=== PATIENT | male | born 1950 | race African-American/Black ===

== ENCOUNTER 2019-11-17 09:06 | Inpatient (IN) | payer OTHER ==
--- NOTE | 2019-11-17 11:20 | BHS.RME ---
Substance Use & Tx History - Substance Use History Alcohol Substance amount: 1 pint Vodka Frequency of use: More than 3 times per week Substance route: Oral Date of Last Use: 11/16/19 (First use age 14 y. Seizure 30 years ago. Blackout in 1961. No eyeopener) Heroin Substance amount: one bundle Frequency of use: Daily Substance route: Inhalation (ex: sniffing or snorting), Injection (ex: intravenous or skin popping) Date of Last Use: 11/16/19 (First use age 17 y. OD age 21 y. Has Narcan at home) Klonopin Substance amount: 3 x 2 mg Frequency of use: Daily Substance route: Oral Date of Last Use: 11/16/19 (Began use age 62 y) Cocaine- Powder Substance amount: 2 bags Frequency of use: Once a month Substance route: Inhalation (ex: sniffing or snorting), Injection (ex: intravenous or skin popping) Date of Last Use: 08/19/19 (First use age 17 y) Nicotine Substance amount: 3 cigs Frequency of use: Daily Substance route: Smoking Date of Last Use: 11/17/19 (began at age 11 y) - Last Treatment Date of last treatment: [facility] 30 y ago? Physical/Psych/Mental Status - Behavior General Behavior: Decreased activity Eye Contact: Normal - Cooperativeness Cooperativeness: Cooperative - Thinking Thought Processes: Tight Thought content: Future oriented - Physical Health Problems Is patient presently having any pain?: Yes (chronic joint pain: shoulders) Does patient presently have any injuries (include location): No Does patient currently have a fever: No COWS - Scale Resting Pulse: 0= MD 80 or Below Sweatin= No chills or Flushing Restless Observation: 0= Sits Still Pupil Size: 0= Normal to Room Light Bone or Joint Aches: 1= Mild Discomfort Runny Nose/ Eye Tearin= Runny Nose/Eyes GI Upset > 30mins: 2= Nausea/Diarrhea Tremor Observation: 1= Tremor [place], Not Seen Yawning Observation: 0= None Anxiety or Irritability: 1=Feels Anxious/Irritable Goose Flesh Skin: 0=Smooth Skin COWS Score: 7 CIWA Nausea/Vomitin Muscle Tremors: 1-None Visible, but [place] Anxiety: 3 Agitation: 0-Normal Activity Paroxysmal Sweats: No Perspiration Orientation: 0-Oriented Tacttile Disturbances: 0-None Auditory Disturbances: 2-Mild Harshness/Frighten Visual Disturbances: 2-Mild Sensitivity Headache: 3-Moderate CIWA-Ar Total Score: 14
--- NOTE | 2019-11-17 12:00 | HP ---
COWS - Scale Resting Pulse: 0= [place] 80 or Below Sweatin= No chills or Flushing Restless Observation: 0= Sits Still Pupil Size: 0= Normal to Room Light Bone or Joint Aches: 1= Mild Discomfort Runny Nose/ Eye Tearin= Runny Nose/Eyes GI Upset > 30mins: 2= Nausea/Diarrhea Tremor Observation: 1= Tremor [place], Not Seen Yawning Observation: 0= None Anxiety or Irritability: 1=Feels Anxious/Irritable Goose Flesh Skin: 0=Smooth Skin COWS Score: 7 CIWA Score Nausea/Vomitin Muscle Tremors: 1-None Visible, but [place] Anxiety: 3 Agitation: 0-Normal Activity Paroxysmal Sweats: No Perspiration Orientation: 0-Oriented Tacttile Disturbances: 0-None Auditory Disturbances: 2-Mild Harshness/Frighten Visual Disturbances: 2-Mild Sensitivity Headache: 3-Moderate CIWA-Ar Total Score: 14 - Admission Criteria OASAS Guidelines: Admission for Medically Managed Detox: Requires at least one of the followin. CIWA greater than 12 2. Seizures within the past 24 hours 3. Delirium tremens within the past 24 hours 4. Hallucinations within the past 24 hours 5. Acute intervention needed for co occurring medical disorder 6. Acute intervention needed for co occurring psychiatric disorder 7. Severe withdrawal that cannot be handled at a lower level of care (continued vomiting, continued diarrhea, abnormal vital signs) requiring intravenous medication and/or fluids 8. Admitting History and Physical - Admission Chief Complaint: Mr. Robins is a 69 yo man who presents to [facility] stating he is "trying to detox from Klonopin, Heroin and methadone". History of Present Illness: Mr. Robins is a 69 yo man who presents to [facility] stating he is "trying to detox from Klonopin, Heroin and methadone". He thinks he was here 30 years ago for detox. He states he was in a [facility]: [place] and was getting Suboxon e. He has a band on from [place] with Dr. Park name on it, that is the provider who last wrote rx for buprenorphine. He states that since he left [place] he has been buying heroin, buprenorphine and methadone on the street. PMH: COVID positive in July 2019, Asthma, arthritis PSH: left thumb trigger finger, bones removed from pinky toe bilaterally PSYCH: anxiety SoC: anxiety SOC: homeless on the streets - Substance Use History Alcohol Substance amount: 1 pint Vodka Frequency of use: More than 3 times per week Substance route: Oral Date of Last Use: 11/16/19 (First use age 14 y. Seizure 30 years ago. Blackout in 1960. No eyeopener) Heroin Substance amount: one bundle Frequency of use: Daily Substance route: Inhalation (ex: sniffing or snorting), Injection (ex: intrav enous or skin popping) Date of Last Use: 11/16/19 (First use age 17 y. OD age 21 y. Has Narcan at home) Klonopin Substance amount: 3 x 2 mg Frequency of use: Daily Substance route: Oral Date of Last Use: 11/16/19 (Began use age 62 y) Cocaine- Powder Substance amount: 2 bags Frequency of use: Once a month Substance route: Inhalation (ex: sniffing or snorting), Injection (ex: intraveno us or skin popping) Date of Last Use: 08/19/19 (First use age 17 y) Nicotine Substance amount: 3 cigs Frequency of use: Daily Substance route: Smoking Date of Last Use: 11/17/19 (began at age 11 y) - Last Treatment Date of last treatment: [facility] 30 y ago? Patient Name: Rocky Robins Date: 1950 Address: [address] [place] [address] Sex: Male Rx Written Rx Dispensed Drug Quantity Days Supply Prescriber Name 10/06/2019 10/25/2019 buprenorphine-naloxone 8-2 mg sl film 30 15 Tj Porras MD 10/06/2019 10/25/2019 clonazepam 1 mg tablet 30 10 Tj Porras MD 10/06/2019 10/18/2019 clonazepam 1 mg tablet 30 10 Tj Porras MD 10/06/2019 10/06/2019 buprenorphine-naloxone 8-2 mg sl film 30 15 Tj Porras MD 10/06/2019 10/06/2019 clonazepam 1 mg tablet 30 10 Tj Porras MD 09/10/2019 09/28/2019 clonazepam 1 mg tablet 30 10 Tj Porras MD 09/28/2019 09/28/2019 clonazepam 1 mg tablet 30 30 Tj Porras MD 09/10/2019 09/23/2019 buprenorphine-naloxone 8-2 mg sl film 30 15 Tj Porras MD 09/10/2019 09/19/2019 clonazepam 1 mg tablet 30 10 Tj Porras MD 09/10/2019 09/10/2019 buprenorphine-naloxone 8-2 mg sl film 30 15 Tj Porras MD 09/10/2019 09/10/2019 clonazepam 1 mg tablet 30 10 Tj Porras MD 08/23/2019 08/26/2019 clonazepam 1 mg tablet 30 15 Tj Porras MD 08/23/2019 08/26/2019 buprenorphine-naloxone 8-2 mg sl film 30 15 Tj Porras MD History Source: Patient Limitations to Obtaining History: No Limitations Admission [facility] Allergies/Adverse Reactions: Allergies Allergy/AdvReac Type Severity Reaction Status Date / Time No Known Drug Allergies Allergy Verified 11/17/19 12:08 Pork/Porcine Containing Allergy Verified 11/17/19 12:07 Products Exam Limitations: No Limitations - Ebola screening Have you traveled outside of the country in the last 21 days: No Have you been sick,other than usual withdrawal symptoms: No Do you have a fever: No - Review of Systems Constitutional: Weight Stable EENT: denies: Blurred Vision Respiratory: denies: Cough, Shortness of Breath Cardiac: denies: Chest Pain GI: reports: Nausea : reports: No Symptoms Reported Musculoskeletal: reports: Back Pain Integumentary: reports: No Symptoms Reported Neuro: reports: Headache Hematology: reports: No Symptoms Reported Psychiatric: reports: Anxious Patient History - Smoking Cessation Smoking history: Current every day smoker Have you smoked in the past 12 months: Yes Hx Chewing Tobacco Use: No Initiated information on smoking cessation: Yes 'Breaking Loose' booklet given: 11/17/19 - Substances abused Alcohol Substance route: Oral Frequency: 3-6 times per week Amount used: 1 PINT VODKA Age of first use: 14 Date of last use: 11/15/19 Heroin Substance route: Injection Frequency: Daily Amount used: 1 BUNDLE Age of first use: 17 Date of last use: 11/16/19 Cocaine Substance route: Inhalation Frequency: 1-3 times last 30 days Amount used: 2 BAGS Age of first use: 17 Date of last use: 08/19/19 Admission Physical Exam [facility] - Physical General Appearance: Yes: No Apparent Distress, Nourished, Thin, Irritable, Anxious HEENTM: Yes: EOMI, Hearing grossly Normal, Normocephalic, Normal Voice Respiratory: Yes: Lungs Clear, Normal Breath Sounds, No Respiratory Distress, No Accessory Muscle Use Neck: Yes: Within Normal Limits, Supple Breast: Yes: Breast Exam Deferred Cardiology: Yes: Regular Rhythm, S1, S2, Bradycardia (chronic per pt) Abdominal: Yes: Normal Bowel Sounds, Non Tender, Flat, Soft Genitourinary: Yes: Other (deferred) Back: Yes: Normal Inspection Musculoskeletal: Yes: Gait Steady Extremities: Yes: Normal Inspection, Non-Tender Neurological: Yes: Alert, Other (slow to respond to questions) Integumentary: Yes: Normal Color, Dry, Warm - Diagnostic (1) Alcohol dependence with withdrawal, uncomplicated Current Visit: Yes Status: Acute (2) Opioid withdrawal Current Visit: Yes Status: Acute (3) Nicotine dependence Current Visit: Yes Status: Acute Qualifiers: Nicotine product type: cigarettes Substance use status: uncomplicated Qualified Code(s): F17.210 - Nicotine dependence, cigarettes, uncomplicated (4) Benzodiazepine dependence Current Visit: Yes Status: Acute (5) HTN (hypertension) Current Visit: Yes Status: Chronic Qualifiers: Hypertension type: essential hypertension Qualified Code(s): I10 - Essential (primary) hypertension (6) Asthma Current Visit: Yes Status: Chronic (7) Arthritis Current Visit: Yes Status: Acute Cleared for Admission [facility] - Detox or Rehab [facility] Level of Care: Medically Managed Detox Regimen/Protocol: Methadone/Librium Breathalyzer - Breathalyzer Breathalyzer: 0 Urine Drug Screen - Test Device Lot number: [id number] Expiration date: 11/15/21 - Control Is test valid?: Yes - Results Drug screen NEGATIVE: No Urine drug screen results: FEN-Fentanyl, MOP-Opiates, MTD-Methadone, BUP- Suboxone Inpatient Rehab Admission - Rehab Decision to Admit Inpatient rehab admission?: No
[2019-11-17] MEDS ORDERED: cloNIDine HCL 0.1 MG TABLET PO PRN (12:11)
[2019-11-17] MEDS ORDERED: MAGNESIUM CITRATE 300 ML BOTTLE PO PRN (12:11)
[2019-11-17] MEDS ORDERED: BISMUTH SUBSALICYLATE 524 MG/30 ML UD PO PRN (12:11)
[2019-11-17] MEDS ORDERED: ACETAMINOPHEN 325 MG TABLET (FP) PO PRN (12:11)
[2019-11-17] MEDS ORDERED: MAG HYDROX/AL HYDROX/SIMETH 30 ML UNIT-DOSE CUP PO PRN (12:11)
[2019-11-17] MEDS ORDERED: MAGNESIUM HYDROX 2400MG/30ML ORAL SUSPENSION 30 ML CUP PO PRN (12:11)
[2019-11-17] MEDS ORDERED: IBUPROFEN 400 MG TABLET (FP) PO PRN (12:11)
[2019-11-17] MEDS ORDERED: chlordiazePOXIDE HCL 25 MG CAPSULE PO PRN (12:11)
[2019-11-17] MEDS ORDERED: NICOTINE POLACRILEX 2 MG GUM BUC PRN (12:11)
[2019-11-17] MEDS ORDERED: MENTHOL/PHENOL 1 EACH UD MM PRN (12:11)
[2019-11-17] MEDS ORDERED: ALBUTEROL SO4 HFA INHALER IH PRN (12:14)
[2019-11-17 12:36] VITALS: BMI 20.2
[2019-11-17] MEDS ORDERED: METHADONE HCL 10 MG TABLET (FOR DETOX USE ONLY) PO ONE (13:30)
[2019-11-17] MEDS: ONDANSETRON *ODT* 4 MG TABLET SL PRN (13:30)
[2019-11-17] MEDS ORDERED: ONDANSETRON *ODT* 4 MG TABLET ONE (13:34)
[2019-11-17] MEDS: LISINOPRIL 10 MG TABLET (FP) PO SCH (14:15)
[2019-11-17] MEDS: hydrOXYzine PAMOATE 25 MG CAPSULE (FP) PO SCH ×3 (14:17→22:54)
[2019-11-17] MEDS: NICOTINE 14 MG/24 HOURS TOPICAL PATCH TD SCH (14:20)
[2019-11-17] MEDS ORDERED: TUBERCULIN PPD 5 TU/0.1ML VIAL ID ONE (14:23)
--- NOTE | 2019-11-17 14:24 | PN ---
S Progress Note Note: Pt is a 69 y/o male admitted to unit this afternoon. Called by nurse Tea Mathur re:blood pressure/pulse. This investment underwriter called admitting doctor, Dr. Ashford who examined the patient and pt stated to her he has a hx of Chronic Bradycardia. Denied Chest pain and EKG done on admission unremarkable. Pt's Heroin use reviewed with Dr. Ashford as one bundle/day. Dr. Ashford gave an ok to medicate with methadone 30 mg as directed in the protocol. Hold Lisinopril today. Vital Signs - 24 hr 11/17/19 11/17/19 12:31 14:08 Temperature 97.4 F L 97.7 F Pulse Rate 52 L 44 L Respiratory 16 16 Rate Blood Pressure 106/66 103/53 L O2 Sat by Pulse 95 Oximetry (%) Increase po fluids monitor pt maintain safety
--- NOTE | 2019-11-17 14:40 | EKG ---
Test Reason : Blood Pressure : / mmHG Vent. Rate : 044 BPM Atrial Rate : 044 BPM P-R Int : 190 ms QRS Dur : 100 ms QT Int : 452 ms P-R-T Axes : 044 -61 011 degrees QTc Int : 386 ms MARKED SINUS BRADYCARDIA LEFT AXIS DEVIATION LOW VOLTAGE QRS ABNORMAL ECG WHEN COMPARED WITH ECG OF 26-FEB-2008 12:02, [place] INTERVAL HAS DECREASED Confirmed by MD Rupesh, Kemal ([id number]) on 11/17/2019 2:39:52 PM Referred By: Confirmed By:Kemal Goddard MD
[2019-11-17] MEDS: predniSONE 20 MG TABLET (UD) PO SCH (14:45)
[2019-11-17] MEDS: chlordiazePOXIDE HCL 25 MG CAPSULE PO SCH ×2 (17:34→22:54)
[2019-11-17] MEDS: ACETAMINOPHEN 325 MG TABLET (FP) PO PRN (17:40)
[2019-11-17 17:51] LABS: HEMATOCRIT 35.5 % (35.4-49); HEMOGLOBIN 11.7 GM/dL (11.7-16.9); MCH 29.8 pg (25.7-33.7); MEAN PLT VOLUME 9.6 fl (7.5-11.1); PLATELET COUNT 204 K/MM3 (134-434); RBC 3.94 M/mm3 (4.00-5.60); RDW 14.9 % (11.9-15.9); WHITE BLOOD COUNT 7.5 K/mm3 (4.0-10.0)
[2019-11-17 17:59] LABS: ALBUMIN 3.4 g/dl (3.4-5.0); BILIRUBIN,TOTAL 0.2 mg/dL (0.2-1); BLOOD UREA NITROGEN 26.6 mg/dL (7-18); CALCIUM 9.1 mg/dL (8.5-10.1); CREATININE 1.3 mg/dL (0.55-1.3); POTASSIUM 4.7 mmol/L (3.5-5.1); TOT PROT 8.3 g/dl (6.4-8.2)
[2019-11-17] MEDS ORDERED: traZODone HCL 100 MG TABLET (FP) PO ONE (21:08)
[2019-11-17] MEDS: TRIMETHOBENZAMIDE HCL 200MG/2ML INJ IM PRN (21:28)
[2019-11-17] MEDS: MELATONIN 5 MG TABLETS PO SCH (22:54)
[2019-11-17] MEDS: METHOCARBAMOL 500 MG TABLET PO PRN (22:54)
[2019-11-17] MEDS: THIAMINE HCL 100 MG TABLET (FP) PO SCH (22:54)
[2019-11-18] MEDS: TRIMETHOBENZAMIDE HCL 200MG/2ML INJ IM PRN (07:46)
[2019-11-18] MEDS: chlordiazePOXIDE HCL 25 MG CAPSULE PO SCH ×4 (07:58→22:39)
[2019-11-18] MEDS: hydrOXYzine PAMOATE 25 MG CAPSULE (FP) PO SCH (08:33)
[2019-11-18] MEDS ORDERED: METHADONE HCL 10 MG TABLET (FOR DETOX USE ONLY) ONE (09:28)
[2019-11-18] MEDS: NICOTINE 14 MG/24 HOURS TOPICAL PATCH TD SCH (09:33)
[2019-11-18] MEDS: predniSONE 20 MG TABLET (UD) PO SCH (09:33)
[2019-11-18] MEDS: PRENATAL VITAMINS W/ FOLIC ACID TABLET (FP) PO SCH (09:34)
[2019-11-18] MEDS: LISINOPRIL 10 MG TABLET (FP) PO SCH (09:43)
[2019-11-18] MEDS ORDERED: METHADONE (DETOX) 20 MG, METHADONE (DETOX) 5 MG PO ONE (10:00)
--- NOTE | 2019-11-18 14:19 | PN ---
BHS Progress Note Note: Pt arrived on the unit about lunch time and saw pt eating lunch in room.
--- NOTE | 2019-11-18 14:20 | PN ---
[facility] CIWA - CIWA Score Nausea/Vomitin Muscle Tremors: 3 Anxiety: 4-Mod. Anxious/Guarded Agitation: 3 Paroxysmal Sweats: 1-Minimal Palms Moist Orientation: 0-Oriented Tacttile Disturbances: 0-None Auditory Disturbances: 0-None Visual Disturbances: 0-None Headache: 0-None Present CIWA-Ar Total Score: 16 BHS COWS - Scale Resting Pulse: 0= [place] 80 or Below Sweatin= Chills/Flushing Restless Observation: 3= Extraneous Movement Pupil Size: 0= Normal to Room Light Bone or Joint Aches: 4=Acute Joint/Muscle Pain Runny Nose/ Eye Tearin= None GI Upset > 30mins: 3= Vomiting/Diarrhea Tremor Observation of Outstretched Hands: 1= Tremor [place], Not Seen Yawning Observation: 0= None Anxiety or Irritability: 2=Irritable/Anxious Goose Flesh Skin: 0=Smooth Skin COWS Score: 14 S Progress Note (SOAP) Subjective: Pt c/o severe withdrawal sx-"i can't talk right now". "i'm withdrawing". "my whole body is messed up". Saw pt in bed and appears to be uncomfortable. c/o body pain anxiety chills nausea/vomiting Objective: 11/18/19 16:42 Vital Signs - 24 hr 11/17/19 11/17/19 11/18/19 16:48 20:19 05:34 Temperature 97.5 F L 98.4 F 98.0 F Pulse Rate 55 L 53 L 51 L Respiratory 16 16 16 Rate Blood Pressure 102/61 109/65 110/68 O2 Sat by Pulse 95 90 L Oximetry (%) Laboratory Tests 11/17/19 11/17/19 11/17/19 12:10 12:10 12:10 WBC 7.5 RBC 3.94 L Hgb 11.7 Hct 35.5 MCV 90.0 MCH 29.8 MCHC 33.0 RDW 14.9 Plt Count 204 MPV 9.6 Sodium 138 Potassium 4.7 Chloride 105 Carbon Dioxide 24 Anion Gap 9 BUN 26.6 H Creatinine 1.3 Est GFR (CKD-EPI)AfAm 64.52 Est GFR (CKD-EPI)NonAf 55.67 Random Glucose 96 Calcium 9.1 Total Bilirubin 0.2 AST 18 ALT 15 Alkaline Phosphatase 55 Total Protein 8.3 H Albumin 3.4 Syphilis Serology Non-reactive COVID-19 (GIORGIO) 11/17/19 14:10 WBC RBC Hgb Hct MCV MCH MCHC RDW Plt Count MPV Sodium Potassium Chloride Carbon Dioxide Anion Gap BUN Creatinine Est GFR (CKD-EPI)AfAm Est GFR (CKD-EPI)NonAf Random Glucose Calcium Total Bilirubin AST ALT Alkaline Phosphatase Total Protein Albumin Syphilis Serology COVID-19 (GIORGIO) Not detected covid-19 not detected alert o x 3 uncomfortable in bed but communicating needs coherently. Assessment: 11/18/19 16:43 moderated to severe withdrawal sx Plan: cont detox increase po fluids maintain safety Tigan was given as directed with positive response.
[2019-11-18] MEDS: THIAMINE HCL 100 MG TABLET (FP) PO SCH (22:39)
[2019-11-18] MEDS: MELATONIN 5 MG TABLETS PO SCH (22:39)
[2019-11-19] MEDS: chlordiazePOXIDE HCL 25 MG CAPSULE PO SCH ×4 (07:23→22:51)
[2019-11-19] MEDS ORDERED: METHADONE HCL 10 MG TABLET (FOR DETOX USE ONLY) PO ONE (10:00)
[2019-11-19] MEDS: NICOTINE 14 MG/24 HOURS TOPICAL PATCH TD SCH (10:06)
[2019-11-19] MEDS: PRENATAL VITAMINS W/ FOLIC ACID TABLET (FP) PO SCH (10:07)
[2019-11-19] MEDS: LISINOPRIL 10 MG TABLET (FP) PO SCH (10:08)
[2019-11-19] MEDS: predniSONE 20 MG TABLET (UD) PO SCH (10:15)
--- NOTE | 2019-11-19 11:23 | PN ---
[facility] CIWA - CIWA Score Nausea/Vomitin-No Nausea/No Vomiting Muscle Tremors: None Anxiety: 2 Agitation: 2 Paroxysmal Sweats: No Perspiration Orientation: 1-Uncertain about Date Tacttile Disturbances: 0-None Auditory Disturbances: 0-None Visual Disturbances: 0-None Headache: 0-None Present CIWA-Ar Total Score: 5 S COWS - Scale Resting Pulse: 0= [place] 80 or Below Sweatin= No chills or Flushing Restless Observation: 1= Difficult to Sit Still Pupil Size: 0= Normal to Room Light Bone or Joint Aches: 1= Mild Discomfort Runny Nose/ Eye Tearin= None GI Upset > 30mins: 0= None Tremor Observation of Outstretched Hands: 0= None Yawning Observation: 0= None Anxiety or Irritability: 2=Irritable/Anxious Goose Flesh Skin: 0=Smooth Skin COWS Score: 4 S Progress Note (SOAP) Subjective: Pt insists on getting lisinopril, states he always has low BP and has been told to continue Objective: 11/19/19 11:26 PE Gnl: WDWN, in bed, in no distress MS: agitated, irritable: demanding he get lisinopril Motor: moves limbs well Gait: deferred Laboratory Tests 11/17/19 11/17/19 11/17/19 12:10 12:10 12:10 WBC 7.5 RBC 3.94 L Hgb 11.7 Hct 35.5 MCV 90.0 MCH 29.8 MCHC 33.0 RDW 14.9 Plt Count 204 MPV 9.6 Sodium 138 Potassium 4.7 Chloride 105 Carbon Dioxide 24 Anion Gap 9 BUN 26.6 H Creatinine 1.3 Est GFR (CKD-EPI)AfAm 64.52 Est GFR (CKD-EPI)NonAf 55.67 Random Glucose 96 Calcium 9.1 Total Bilirubin 0.2 AST 18 ALT 15 Alkaline Phosphatase 55 Total Protein 8.3 H Albumin 3.4 Syphilis Serology Non-reactive COVID-19 (GIORGIO) 11/17/19 14:10 WBC RBC Hgb Hct MCV MCH MCHC RDW Plt Count MPV Sodium Potassium Chloride Carbon Dioxide Anion Gap BUN Creatinine Est GFR (CKD-EPI)AfAm Est GFR (CKD-EPI)NonAf Random Glucose Calcium Total Bilirubin AST ALT Alkaline Phosphatase Total Protein Albumin Syphilis Serology COVID-19 (GIORGIO) Not detected Home Medication List Medication Instructions Recorded Confirmed Type Albuterol Sulfate Inhaler - 1 - 2 inh PO Q4H PRN 11/17/19 11/17/19 History [Ventolin Hfa Inhaler -] Clonazepam [Klonopin] 1 mg PO TID 11/17/19 11/17/19 History Lisinopril 10 mg PO DAILY 11/17/19 11/17/19 History predniSONE [Deltasone -] 60 mg PO DAILY 11/17/19 11/17/19 History Active Medications Generic Name Dose Route Start Last Admin Trade Name Freq PRN Reason Stop Dose Admin Acetaminophen 650 mg 11/17/19 12:11 11/17/19 17:40 Tylenol - PO 650 mg Q6H PRN Administration PAIN LEVEL 4 - 6 Acetaminophen 650 mg 11/17/19 12:11 11/18/19 17:54 Tylenol - PO 650 mg Q6H PRN Administration FEVER Al Hydroxide/Mg Hydroxide 30 ml 11/17/19 12:11 Mylanta Oral Suspension - PO Q6H PRN DYSPEPSIA Albuterol Sulfate 1 puff 11/17/19 12:14 Ventolin Hfa Inhaler - IH Q4H PRN ASTHMA Bismuth Subsalicylate 524 mg 11/17/19 12:11 Pepto-Bismol - PO Q1H PRN DIARRHEA Chlordiazepoxide HCl 25 mg 11/19/19 05:00 11/19/19 10:06 Librium - PO 11/19/19 23:01 25 mg [id number] ISADORA Administration Chlordiazepoxide HCl 25 mg 11/17/19 12:11 11/18/19 18:37 Librium - PO 11/19/19 23:59 25 mg Q4H PRN Administration WITHDRAWAL(CONT SUBST) Chlordiazepoxide HCl 10 mg 11/20/19 05:00 Librium - PO 11/20/19 23:01 [id number] ISADORA Chlordiazepoxide HCl 10 mg 11/21/19 05:00 Librium - PO 11/21/19 17:01 Q12H ISADORA Chlordiazepoxide HCl 10 mg 11/20/19 00:00 Librium - PO 11/21/19 00:00 Q4H PRN WITHDRAWAL(CONT SUBST) Chlordiazepoxide HCl 10 mg 11/22/19 05:00 Librium - PO 11/22/19 05:01 ONCE@0500 ONE Clonidine 0.1 mg 11/17/19 12:11 Catapres - PO 11/19/19 23:59 Q4H PRN Withdrawal Symptoms Eucalyptus/Menthol/Phenol/Sorbitol 1 each 11/17/19 12:11 Cepastat Lozenge - MM 11/23/19 12:11 Q4H PRN SORE THROAT Ibuprofen 400 mg 11/17/19 12:11 Motrin - PO Q6H PRN PAIN LEVEL 1 - 3 Lisinopril 10 mg 11/17/19 13:30 11/19/19 10:08 Prinivil PO Not Given DAILY ISADORA Magnesium Citrate 300 ml 11/17/19 12:11 Citroma - PO Q48H PRN CONSTIPATION Magnesium Hydroxide 30 ml 11/17/19 12:11 Milk Of Magnesia - PO PRN PRN CONSTIPATION Melatonin 5 mg 11/17/19 22:00 11/18/19 22:39 Melatonin PO 5 mg HS ISADORA Administration Methadone HCl 5 mg 11/22/19 06:00 Dolophine - PO 11/22/19 06:01 ONCE@0600 ONE Methadone HCl 10 mg 11/21/19 10:00 Dolophine - PO 11/21/19 10:01 ONCE ONE Methadone HCl 10 mg/ Methadone 15 mg 11/20/19 10:00 HCl 5 mg PO 11/20/19 10:01 ONCE ONE Methocarbamol 500 mg 11/17/19 12:11 11/17/19 22:54 Robaxin - PO 11/23/19 12:11 500 mg Q6H PRN Administration MUSCLE SPASMS Nicotine 14 mg 11/17/19 13:30 11/19/19 10:06 Nicoderm Patch - TD 14 mg DAILY ISADORA Administration Nicotine Polacrilex 2 mg 11/17/19 12:11 Nicorette Gum - BUC Q2H PRN NICOTINE REPLACEMENT RX Ondansetron HCl 4 mg 11/17/19 12:11 11/17/19 13:30 Zofran Odt - SL 11/23/19 12:12 4 mg Q8H PRN Administration Nausea/Vomiting Prednisone 60 mg 11/17/19 13:30 11/19/19 10:15 Deltasone - PO Not Given DAILY ISADORA Multivit/Folic Acid/Iron 1 tab 11/18/19 10:00 11/19/19 10:07 Vitamins (Sjr) - PO 1 tab DAILY ISADORA Administration Thiamine HCl 100 mg 11/17/19 22:00 11/18/19 22:39 Vitamin B1 - PO 100 mg HS ISADORA Administration Trimethobenzamide HCl 200 mg 11/17/19 21:07 11/18/19 07:46 Tigan Injection - IM 11/19/19 21:06 200 mg Q8H PRN Administration NAUSEA Vital Signs Temperature 97.5 F L 11/19/19 08:45 Pulse Rate 63 11/19/19 08:45 Respiratory Rate 18 11/19/19 08:45 Blood Pressure 100/62 11/19/19 08:45 O2 Sat by Pulse Oximetry (%) 95 11/19/19 08:45 Assessment: 11/19/19 11:22 1. Opiate use disorder 2. Benzodiazpine use, rx from 3. Alcohol use disorder 4. Nicotine dependence 11/19/19 11:23 Mr. Robins is a 69 yo man who presents to [facility] stating he is "trying to detox from Klonopin, Heroin and methadone". He thinks he was here 30 years ago for detox. He states he was in a Care Home: [place] and was getting Suboxone. He has a band on from [place] with Dr. Park name on it, that is the provider who last wrote rx for buprenorphine. He states that since he left [place] he has been buying heroin, buprenorphine and methadone on the street. PMH: COVID positive in July 2019, Asthma, arthritis PSH: left thumb trigger finger, bones removed from pinky toe bilaterally PSYCH: anxiety SoC: anxiety SOC: homeless on the streets Plan: 1. Librium detox, projected completion on 11/21 2. Methadone detox, projected completion on 11/21 3. Psychiatry consult pending.
[2019-11-19] MEDS: METHOCARBAMOL 500 MG TABLET PO PRN (12:56)
[2019-11-19] MEDS: ONDANSETRON *ODT* 4 MG TABLET SL PRN (12:56)
[2019-11-19] MEDS: ACETAMINOPHEN 325 MG TABLET (FP) PO PRN (12:56)
[2019-11-19] MEDS ORDERED: SODIUM PHOSPHATE/NA BIPHOS 133 ML ENEMA PR ONE (20:25)
[2019-11-19] MEDS: THIAMINE HCL 100 MG TABLET (FP) PO SCH (22:52)
[2019-11-19] MEDS: MELATONIN 5 MG TABLETS PO SCH (22:52)
[2019-11-20] MEDS ORDERED: chlordiazePOXIDE HCL 10 MG CAPSULE PO PRN
[2019-11-20] MEDS: ONDANSETRON *ODT* 4 MG TABLET SL PRN (04:40)
[2019-11-20] MEDS: chlordiazePOXIDE HCL 10 MG CAPSULE PO SCH ×4 (06:30→22:53)
[2019-11-20] MEDS ORDERED: METHADONE HCL 10 MG TABLET (FOR DETOX USE ONLY) ONE (09:51)
[2019-11-20] MEDS ORDERED: METHADONE HCL 5 MG TABLET (FOR DETOX USE ONLY) ONE (09:52)
[2019-11-20] MEDS ORDERED: METHADONE (DETOX) 10 MG, METHADONE (DETOX) 5 MG PO ONE (10:00)
[2019-11-20] MEDS: PRENATAL VITAMINS W/ FOLIC ACID TABLET (FP) PO SCH (10:51)
[2019-11-20] MEDS: LISINOPRIL 10 MG TABLET (FP) PO SCH (10:51)
[2019-11-20] MEDS: predniSONE 20 MG TABLET (UD) PO SCH ×2 (10:51→10:52)
[2019-11-20] MEDS: NICOTINE 14 MG/24 HOURS TOPICAL PATCH TD SCH (10:55)
[2019-11-20] MEDS ORDERED: hydrOXYzine PAMOATE 25 MG CAPSULE (FP) PO ONE (14:00)
[2019-11-20] MEDS ORDERED: TRIMETHOBENZAMIDE HCL 200MG/2ML INJ IM ONE (14:01)
--- NOTE | 2019-11-20 14:08 | PN ---
S CIWA - CIWA Score Nausea/Vomitin Muscle Tremors: 2 Anxiety: 3 Agitation: 0-Normal Activity Paroxysmal Sweats: 3 Orientation: 0-Oriented Tacttile Disturbances: 0-None Auditory Disturbances: 0-None Visual Disturbances: 0-None Headache: 1-Very Mild CIWA-Ar Total Score: 11 BHS COWS - Scale Resting Pulse: 0= [place] 80 or Below Sweatin= Chills/Flushing Restless Observation: 1= Difficult to Sit Still Pupil Size: 0= Normal to Room Light Bone or Joint Aches: 2= Severe Diffuse Aches Runny Nose/ Eye Tearin= None GI Upset > 30mins: 1= Stomach Cramp Tremor Observation of Outstretched Hands: 2= Slight Tremor Visible Yawning Observation: 2= >3x During Session Anxiety or Irritability: 2=Irritable/Anxious Goose Flesh Skin: 0=Smooth Skin COWS Score: 11 S Progress Note (SOAP) Subjective: c/o sweats, anxiety, irritability, nausea/vomiting x2, headache, shakes, and muscle aches. Objective: 11/20/19 14:05 Vital Signs 11/20/19 11/20/19 06:50 08:43 Temperature 97.2 F L 96.1 F L Pulse Rate 84 60 Respiratory 18 18 Rate Blood Pressure 98/62 103/64 O2 Sat by Pulse 97 97 Oximetry (%) Laboratory Last Values WBC 7.5 K/mm3 (4.0-10.0) 11/17/19 12:10 RBC 3.94 M/mm3 (4.00-5.60) L 11/17/19 12:10 Hgb 11.7 GM/dL (11.7-16.9) 11/17/19 12:10 Hct 35.5 % (35.4-49) 11/17/19 12:10 MCV 90.0 fl (80-96) 11/17/19 12:10 MCH 29.8 pg (25.7-33.7) 11/17/19 12:10 MCHC 33.0 g/dl (32.0-35.9) 11/17/19 12:10 RDW 14.9 % (11.9-15.9) 11/17/19 12:10 Plt Count 204 K/MM3 (134-434) 11/17/19 12:10 MPV 9.6 fl (7.5-11.1) 11/17/19 12:10 Sodium 138 mmol/L (136-145) 11/17/19 12:10 Potassium 4.7 mmol/L (3.5-5.1) 11/17/19 12:10 Chloride 105 mmol/L (98-107) 11/17/19 12:10 Carbon Dioxide 24 mmol/L (21-32) 11/17/19 12:10 Anion Gap 9 MMOL/L (8-16) 11/17/19 12:10 BUN 26.6 mg/dL (7-18) H 11/17/19 12:10 Creatinine 1.3 mg/dL (0.55-1.3) 11/17/19 12:10 Est GFR (CKD-EPI)AfAm 64.52 11/17/19 12:10 Est GFR (CKD-EPI)NonAf 55.67 11/17/19 12:10 Random Glucose 96 mg/dL (74-106) 11/17/19 12:10 Calcium 9.1 mg/dL (8.5-10.1) 11/17/19 12:10 Total Bilirubin 0.2 mg/dL (0.2-1) 11/17/19 12:10 AST 18 U/L (15-37) 11/17/19 12:10 ALT 15 U/L (13-61) 11/17/19 12:10 Alkaline Phosphatase 55 U/L (45-117) 11/17/19 12:10 Total Protein 8.3 g/dl (6.4-8.2) H 11/17/19 12:10 Albumin 3.4 g/dl (3.4-5.0) 11/17/19 12:10 Syphilis Serology Non-reactive (NONREACTIVE) 11/17/19 12:10 COVID-19 (GIORGIO) Not detected (Not Detected) 11/17/19 14:10 Labs noted. Assessment: 11/20/19 14:06 AOX3 and in no acute respiratory distress. Full ROM, ambulating in the unit. Withdrawal symptoms. N/V Plan: continue detox. Vistaril 25mg po x1dose. Tigan 200mg IM x1dose. Continue to monitor for any changes.
[2019-11-20] MEDS: ACETAMINOPHEN 325 MG TABLET (FP) PO PRN (17:14)
[2019-11-20] MEDS: MELATONIN 5 MG TABLETS PO SCH (22:53)
[2019-11-20] MEDS: THIAMINE HCL 100 MG TABLET (FP) PO SCH (22:53)
[2019-11-21] MEDS ORDERED: chlordiazePOXIDE HCL 10 MG CAPSULE PO SCH (05:00)
[2019-11-21] MEDS: DOCUSATE SODIUM 100 MG CAPSULE (FP) PO SCH ×2 (07:15→07:52)
[2019-11-21] MEDS: chlordiazePOXIDE HCL 10 MG CAPSULE PO SCH (07:45)
[2019-11-21] MEDS: ACETAMINOPHEN 325 MG TABLET (FP) PO PRN (09:20)
[2019-11-21 09:26] VITALS: BP 100/62; PULSE 66; TEMP 97.3
[2019-11-21] MEDS ORDERED: METHADONE HCL 10 MG TABLET (FOR DETOX USE ONLY) PO ONE (10:00)
--- NOTE | 2019-11-21 11:09 | DS ---
[facility] Detox Discharge Summary Admission Date: 11/17/19 Discharge Date: 11/21/19 - History Present History: Alcohol Dependence, Opioid Dependence, Sedative Dependence Additional Comments: 69 years old male admitted on 11/17/19 for alcohol benzo opiate withdrawal sx management treated with librium and methadone detox regiment mr carroll insists to leave a day early to rehab as estimated day of 11/22/19 is alert oriented x 3 speech clearly coherently ambulating steady gaits General Appearance: Yes: No Apparent Distress, Nourished, Thin, Irritable, Anxious HEENTM: Yes: EOMI, Hearing grossly Normal, Normocephalic, Normal Voice Respiratory: Yes: Lungs Clear, Normal Breath Sounds, No Respiratory Distress, No Accessory Muscle Use Neck: Yes: Within Normal Limits, Supple Breast: Yes: Breast Exam Deferred Cardiology: Yes: Regular Rhythm, S1, S2, Bradycardia (chronic per pt) Abdominal: Yes: Normal Bowel Sounds, Non Tender, Flat, Soft Genitourinary: Yes: Other (deferred) Back: Yes: Normal Inspection Musculoskeletal: Yes: Gait Steady Extremities: Yes: Normal Inspection, Non-Tender Neurological: Yes: Alert, Other (slow to respond to questions) Integumentary: Yes: Normal Color, Dry, Warm Pertinent Past History: time for discharge 45 minutes treatment team met with mr carroll to discuss the benefits of librium and methadone regiments completion mr carroll prefers returning to suboxone program - Physical Exam Results Vital Signs: Vital Signs Temperature 97.3 F L 11/21/19 08:30 Pulse Rate 66 11/21/19 08:30 Respiratory Rate 18 11/21/19 08:30 Blood Pressure 100/62 11/21/19 08:30 O2 Sat by Pulse Oximetry (%) 97 11/21/19 08:30 Pertinent Admission Physical Exam Findings: alcohol benzo opiate withdrawal Laboratory Tests 11/17/19 11/17/19 11/17/19 12:10 12:10 12:10 WBC 7.5 RBC 3.94 L Hgb 11.7 Hct 35.5 MCV 90.0 MCH 29.8 MCHC 33.0 RDW 14.9 Plt Count 204 MPV 9.6 Sodium 138 Potassium 4.7 Chloride 105 Carbon Dioxide 24 Anion Gap 9 BUN 26.6 H Creatinine 1.3 Est GFR (CKD-EPI)AfAm 64.52 Est GFR (CKD-EPI)NonAf 55.67 Random Glucose 96 Calcium 9.1 Total Bilirubin 0.2 AST 18 ALT 15 Alkaline Phosphatase 55 Total Protein 8.3 H Albumin 3.4 Syphilis Serology Non-reactive COVID-19 (GIOR[place]IO) 11/17/19 14:10 WBC RBC Hgb Hct MCV MCH MCHC RDW Plt Count MPV Sodium Potassium Chloride Carbon Dioxide Anion Gap BUN Creatinine Est GFR (CKD-EPI)AfAm Est GFR (CKD-EPI)NonAf Random Glucose Calcium Total Bilirubin AST ALT Alkaline Phosphatase Total Protein Albumin Syphilis Serology COVID-19 (GIORGIO) Not detected lab noted - Treatment Hospital Course: Detox Protocol Followed, Detoxed Safely, Responded well, Discharged Condition Good, Rehab Referral Accepted Patient has Accepted a Rehab Referral to: [facility] - Medication Discharge Medications: Ambulatory Orders Albuterol Sulfate Inhaler - [Ventolin HFA Inhaler -] 1 - 2 inh PO Q4H PRN 11/17/19 Clonazepam [Klonopin] 1 mg PO TID 11/17/19 Lisinopril 10 mg PO DAILY 11/17/19 predniSONE [Deltasone -] 60 mg PO DAILY 11/17/19 - Diagnosis (1) Substance induced mood disorder Status: Suspected (2) Alcohol dependence with withdrawal, uncomplicated Status: Acute (3) Benzodiazepine dependence Status: Acute (4) Nicotine dependence Status: Acute Qualifiers: Nicotine product type: cigarettes Substance use status: in withdrawal Qualified Code(s): F17.213 - Nicotine dependence, cigarettes, with withdrawal (5) Opioid withdrawal Status: Acute (6) Asthma Status: Chronic Qualifiers: Asthma severity: mild Asthma persistence: intermittent Asthma complication type: with status asthmaticus Qualified Code(s): J45.22 - Mild intermittent asthma with status asthmaticus (7) HTN (hypertension) Status: Chronic Qualifiers: Hypertension type: essential hypertension Qualified Code(s): I10 - Essential (primary) hypertension - AMA Did Patient Leave Against Medical Advice: No CIWA Score - CIWA Score Nausea/Vomitin-Mild Nausea/No Vomiting Muscle Tremors: 1-None Visible, but [place] Anxiety: 2 Agitation: 0-Normal Activity Paroxysmal Sweats: 1-Minimal Palms Moist Orientation: 0-Oriented Tacttile Disturbances: 0-None Auditory Disturbances: 0-None Visual Disturbances: 1-Very Mild Sensitivity Headache: 0-None Present CIWA-Ar Total Score: 6 COWS (PN) - Opiate Withdrawal Resting Pulse: 1= MI 81-100 Sweatin= No chills or Flushing Restless Observation: 0= Sits Still Pupil Size: 0= Normal to Room Light Bone or Joint Aches: 1= Mild Discomfort Runny Nose/ Eye Tearin= Nasal Congestion GI Upset > 30mins: 1= Stomach Cramp Tremor Observation of Outstretched Hands: 1= Tremor [place], Not Seen Yawning Observation: 0= None Anxiety or Irritability: 1=Feels Anxious/Irritable Goose Flesh Skin: 0=Smooth Skin COWS Score: 6
[2019-11-22] MEDS ORDERED: chlordiazePOXIDE HCL 10 MG CAPSULE PO ONE (05:00)
[2019-11-22] MEDS ORDERED: METHADONE HCL 5 MG TABLET (FOR DETOX USE ONLY) PO ONE (06:00)
== END 2019-11-21 09:23 | disposition home or self-care (01) | DRG 897 ==
LOC: YASAS 09:06 → Y5N DETOX 12:39 → Y3N 11-18 18:17
PROVIDERS: ADMIT Allergy & Immunology; ATTEND Allergy & Immunology
PROC: HZ2ZZZZ Detoxification Services for Substance Abuse Treatment (ICD-10-PCS; principal; 2019-11-17)
DX: F11.23 Opioid dependence with withdrawal (principal); F10.230 Alcohol dependence with withdrawal, uncomplicated; F13.230 Sedative, hypnotic or anxiolytic dependence with withdrawal, uncomplicated; F17.213 Nicotine dependence, cigarettes, with withdrawal; F19.24 Other psychoactive substance dependence with psychoactive substance-induced mood disorder; I10 Essential (primary) hypertension; J45.20 Mild intermittent asthma, uncomplicated; R00.1 Bradycardia, unspecified; M19.90 Unspecified osteoarthritis, unspecified site; Z86.69 Personal history of other diseases of the nervous system and sense organs; Z86.19 Personal history of other infectious and parasitic diseases; Z59.0 Homelessness; Z91.018 Allergy to other foods
CPT/HCPCS: 36415; 80053; 85027; 86780; 93005; 93010; Q0162; U0003